=== PATIENT | female | born 1985 | race Two or more races ===

== ENCOUNTER 2021-03-10 10:30 | Inpatient (IN) | payer BC ==
[2021-03-10 11:48] VITALS: BMI 34.8
[2021-03-10] MEDS ORDERED: OXYTOCIN 30 UNITS in 0.9% NS 30 UNIT/500 ML INFUS.BAG IVPB ONE (12:58)
[2021-03-10] MEDS ORDERED: OXYTOCIN 30 UNITS in 0.9% NS 30 UNIT/500 ML INFUS.BAG IVPB SCH (13:30)
[2021-03-10] MEDS ORDERED: DEXTROSE 5%-LACTATED RINGERS 1,000 ML IV SCH (13:30)
[2021-03-10 13:46] LABS: BASO % 0.4 % (0-2.0); EOS % 0.7 % (0-4.5); HEMATOCRIT 38.8 % (32.4-45.2); HEMOGLOBIN 13.6 GM/dL (10.7-15.3); LYMPH % 18.1 % (8-40); MEAN CELL VOLUME 85.8 fl (80-96); MEAN PLT VOLUME 13.3 fl (7.5-11.1); MONO % 8.4 % (3.8-10.2); NEUT % 72.4 % (42.8-82.8); PLATELET COUNT 95 10^3/uL (134-434); RBC 4.53 M/mm3 (3.60-5.2); RDW 14.1 % (11.6-15.6); WHITE BLOOD COUNT 8.9 K/mm3 (4.0-10.0)
[2021-03-10 13:54] LABS: INR 0.96 (0.83-1.09); PROTHROMBIN TIME (PATIENT) 10.7 SEC (9.7-13.0)
[2021-03-10 13:57] LABS: ACTIVATED PTT 23.5 SECONDS (25.2-36.5)
[2021-03-10 14:07] LABS: CALCIUM 8.9 mg/dL (8.5-10.1)
[2021-03-10 14:11] LABS: CREATININE 0.7 mg/dL (0.55-1.3)
[2021-03-10 14:46] LABS: PLATELET ESTIMATE DECREASED
[2021-03-10 15:51] LABS: HIV INTERPRETATION NEGATIVE (NEGATIVE)
[2021-03-10] MEDS ORDERED: PCA PUMP NR ONE (18:54)
[2021-03-10] MEDS ORDERED: FENTANYL/BUPIVACAINE/NS/PF - PCEA - 50 ML DISP.SYRIN EP ONE (18:54)
[2021-03-10] MEDS: FENTANYL/BUPIVACAINE/NS/PF - PCEA - 50 ML DISP.SYRIN EP SCH (19:10)
[2021-03-10] MEDS ORDERED: NALOXONE HCL 0.4 MG/ML VIAL IVPUSH PRN (20:43)
[2021-03-10] MEDS ORDERED: OXYTOCIN 20 UNITS in 0.9% NS 20 UNIT/1,000 ML INFUS.BAG IV ONE (21:20)
[2021-03-10] MEDS ORDERED: BISACODYL 10 MG SUPP.RECT RC PRN (22:10)
[2021-03-10] MEDS ORDERED: METHYLERGONOVINE MALEATE 0.2 MG/1 ML AMP IM PRN (22:10)
[2021-03-10] MEDS ORDERED: BENZOCAINE 20% 57 GM BOTTLE TP PRN (22:10)
[2021-03-10] MEDS ORDERED: BENZOCAINE 28 GM HEMORRHOIDAL OINTMENT TP PRN (22:10)
[2021-03-10] MEDS ORDERED: oxyCODONE HCL 5 MG TABLET PO PRN (22:10)
[2021-03-10] MEDS ORDERED: WITCH HAZEL 50% (TUCKS) 40 PAD/JAR PAD TP PRN (22:10)
[2021-03-10] MEDS ORDERED: OXYTOCIN 20 UNITS in 0.9% NS 20 UNIT/1,000 ML INFUS.BAG IV SCH (22:15)
[2021-03-11] MEDS: ACETAMINOPHEN 325 MG TABLET (FP) PO PRN (00:54)
[2021-03-11 07:26] LABS: BASO % 0.3 % (0-2.0); EOS % 0.5 % (0-4.5); HEMOGLOBIN 10.8 GM/dL (10.7-15.3); LYMPH % 16.9 % (8-40); MCH 29.9 pg (25.7-33.7); MCHC 34.9 g/dl (32.0-36.0); MEAN CELL VOLUME 85.9 fl (80-96); MEAN PLT VOLUME 12.5 fl (7.5-11.1); MONO % 10.1 % (3.8-10.2); NEUT % 72.2 % (42.8-82.8); PLATELET COUNT 76 10^3/uL (134-434); RBC 3.61 M/mm3 (3.60-5.2); RDW 13.8 % (11.6-15.6); WHITE BLOOD COUNT 11.1 K/mm3 (4.0-10.0)
[2021-03-11] MEDS: IBUPROFEN 600 MG TABLET (FP) PO PRN ×2 (09:21→20:49)
[2021-03-11] MEDS: PRENATAL VITAMINS W/ FOLIC ACID TABLET (FP) PO SCH (09:21)
[2021-03-11] MEDS: FENTANYL/BUPIVACAINE/NS/PF - PCEA - 50 ML DISP.SYRIN EP SCH (21:11)
[2021-03-11] MEDS ORDERED: SENNOSIDES/DOCUSATE COMBO (SENNA PLUS) TABLET (UD) PO PRN (22:00)
[2021-03-12] MEDS: ACETAMINOPHEN 325 MG TABLET (FP) PO PRN (08:12)
[2021-03-12 08:59] VITALS: BP 104/69; PULSE 87; TEMP 98.3
[2021-03-12] MEDS: PRENATAL VITAMINS W/ FOLIC ACID TABLET (FP) PO SCH (09:50)
== END 2021-03-12 13:10 | disposition home or self-care (01) | DRG 807 ==
LOC: JLDR 10:30 → J3W 03-11 00:39
PROVIDERS: ADMIT Obstetrics & Gynecology; ATTEND Obstetrics & Gynecology
PROC: 0HQ9XZZ Repair Perineum Skin, External Approach (ICD-10-PCS; principal; 2021-03-10)
PROC: 10E0XZZ Delivery of Products of Conception, External Approach (ICD-10-PCS; 2021-03-10)
DX: O48.0 Post-term pregnancy (principal); Z37.0 Single live birth; O70.0 First degree perineal laceration during delivery; Z3A.40 40 weeks gestation of pregnancy
CPT/HCPCS: 36415; 59409; 80048; 85025; 85610; 85730; 86780; 86803; 86850; 86900; 86901; 87389; C9803; U0003; U0005